=== PATIENT | male | born 1930 | race Hispanic/Latino ===

== ENCOUNTER 2020-10-23 01:03 | Observation (INO) | payer MEDICARE ==
[~2020-10-23] VITALS: Ht 172.7 cm; Wt 104.3 kg
[2020-10-23] MEDS ORDERED: DEXTROSE 50% SYRINGE 50 ML IV ONE (01:29)
[2020-10-23] MEDS ORDERED: DEXTROSE 50% SYRINGE 50 ML IV STA (01:30)
[2020-10-23] MEDS ORDERED: DEXTROSE 5%/0.45% SOD CHL 1,000 ML IV STA (01:32)
[2020-10-23 01:38] LABS: BASOPHILS % 0.3 % (0.0-1.0); EOSINOPHILS # (AUTO) 0.1 (0.0-0.4); EOSINOPHILS % 1.4 % (0.0-6.0); HEMATOCRIT 39.7 % (38.2-49.6); HEMOGLOBIN 11.7 g/dL (14.0-18.0); LYMPHOCYTES % 14.8 % (18.0-39.1); MEAN CORPUSCULAR HEMOGLOBIN 29.8 pg (28-32); MEAN CORPUSCULAR HGB CONC 29.5 g/dL (31-35); MONOCYTES # (AUTO) 0.4 (0.2-0.8); MONOCYTES % 6.2 % (4.4-11.3); NEUTROPHILS # (AUTO) 5.1 (2.1-6.9); NEUTROPHILS % 76.4 % (38.7-80.0); PLATELET COUNT 176 x10e3/uL (140-360); RED BLOOD COUNT 3.93 x10e6/uL (4.3-5.7); RED CELL DISTRIBUTION WIDTH 16.2 % (11.7-14.4)
[2020-10-23 02:09] LABS: CREATINE KINASE MB < 1.00 ng/mL (0-4.3)
[2020-10-23 02:20] LABS: ALANINE AMINOTRANSFERASE 29 IU/L (0-55); ANION GAP 15.7 mmol/L (8-16); BLOOD UREA NITROGEN 18 mg/dL (7-26); BUN/CREATININE RATIO 18 (6-25); CALCIUM 8.3 mg/dL (8.4-10.2); CARBON DIOXIDE 20 mmol/L (22-29); CHLORIDE 111 mmol/L (98-107); CREATININE, SERUM 1.02 mg/dL (0.72-1.25); EST GLOMERULAR FILTRATION RATE > 60 ML/MIN (60-); GLUCOSE 175 mg/dL (74-118); POTASSIUM 4.7 mmol/L (3.5-5.1); SODIUM 142 mmol/L (136-145)
[2020-10-23 02:21] LABS: ALBUMIN 3.4 g/dL (3.5-5.0); ALBUMIN/GLOBULIN RATIO 1.1 (0.8-2.0); ALKALINE PHOSPHATASE 46 IU/L (40-150); CREATINE KINASE 83 IU/L (30-200)
[2020-10-23] MEDS ORDERED: ASPIRIN 81 MG CHEW TAB PO ONE (03:15)
[2020-10-23] MEDS ORDERED: DEXTROSE 5%/0.45% SOD CHL 1,000 ML IV ONE ×2 (10:15→20:30)
[2020-10-23] MEDS ORDERED: LACTATED RINGER'S 1,000 ML ONE (10:15)
[2020-10-23 10:53] LABS: CREATINE KINASE MB 1.2 ng/mL (0-5.0)
[2020-10-23 17:34] VITALS: BP 155/73
[2020-10-23 17:35] VITALS: BP 155/73
[2020-10-23 17:46] VITALS: BP 155/73
[2020-10-23] MEDS ORDERED: TRICOR145 MG PO (18:19)
[2020-10-23] MEDS ORDERED: ASPIRIN81 MG PO (18:19)
[2020-10-23] MEDS ORDERED: LISINOPRIL5 MG PO (18:19)
[2020-10-23] MEDS ORDERED: METFORMIN HCL500 MG PO (18:19)
[2020-10-23] MEDS ORDERED: ARICEPT5 MG PO (18:19)
[2020-10-23] MEDS ORDERED: NAMENDA10 MG PO (18:19)
[2020-10-23] MEDS ORDERED: GLIMEPIRIDE4 MG PO (18:19)
[2020-10-23] MEDS ORDERED: JANUVIA100 MG PO (18:19)
[2020-10-23] MEDS ORDERED: SIMVASTATIN40 MG PO (18:47)
[2020-10-23 19:52] LABS: CREATINE KINASE MB 1.1 ng/mL (0-5.0)
[2020-10-23 20:00] VITALS: BP 150/58
[2020-10-23] MEDS: LISINOPRIL 2.5 MG TAB PO SCH (20:54)
[2020-10-23 21:00] VITALS: BP 150/68
[2020-10-24 04:00] VITALS: BP 143/69
[2020-10-24 06:41] LABS: BASOPHILS % 0.8 % (0.0-1.0); EOSINOPHILS # (AUTO) 0.3 (0.0-0.4); EOSINOPHILS % 5.3 % (0.0-6.0); HEMATOCRIT 35.2 % (38.2-49.6); HEMOGLOBIN 11.4 g/dL (14.0-18.0); LYMPHOCYTES # (AUTO) 1.3 (1.0-3.2); LYMPHOCYTES % 25.7 % (18.0-39.1); MEAN CORPUSCULAR HEMOGLOBIN 29.2 pg (28-32); MEAN CORPUSCULAR HGB CONC 32.4 g/dL (31-35); MEAN CORPUSCULAR VOLUME 90.3 fL (81-99); MONOCYTES # (AUTO) 0.4 (0.2-0.8); MONOCYTES % 8.1 % (4.4-11.3); NEUTROPHILS % 59.1 % (38.7-80.0); PLATELET COUNT 163 x10e3/uL (140-360); RED CELL DISTRIBUTION WIDTH 15.4 % (11.7-14.4)
[2020-10-24 07:17] LABS: ALANINE AMINOTRANSFERASE 32 IU/L (0-55); ALKALINE PHOSPHATASE 49 IU/L (40-150); ANION GAP 13.6 mmol/L (8-16); BLOOD UREA NITROGEN 12 mg/dL (7-26); BUN/CREATININE RATIO 14 (6-25); CALCIUM 7.8 mg/dL (8.4-10.2); CARBON DIOXIDE 22 mmol/L (22-29); CHLORIDE 109 mmol/L (98-107); CREATININE, SERUM 0.87 mg/dL (0.72-1.25); EST GLOMERULAR FILTRATION RATE > 60 ML/MIN (60-); GLUCOSE 188 mg/dL (74-118); POTASSIUM 3.6 mmol/L (3.5-5.1); SODIUM 141 mmol/L (136-145)
[2020-10-24 07:59] VITALS: BP 164/74
[2020-10-24] MEDS: LISINOPRIL 2.5 MG TAB PO SCH (08:49)
[2020-10-24 10:03] VITALS: BP 164/74
[2020-10-24 11:49] VITALS: BP 150/74
[2020-10-24 16:34] VITALS: BP 153/66
[2020-10-24] MEDS ORDERED: LISINOPRIL 20 MG TAB PO SCH (17:00)
[2020-10-24] MEDS ORDERED: LISINOPRIL 2.5 MG TAB PO SCH (17:00)
[2020-10-24] MEDS ORDERED: LISINOPRIL10 MG PO (18:02)
== END 2020-10-24 18:46 | disposition home or self-care (01) ==
LOC: ER 01:13 → ERHOLD 03:19 → MED/SURG2 17:09
PROVIDERS: ADMIT Internal Medicine; ATTEND Internal Medicine
DX: T38.3X1A Poisoning by insulin and oral hypoglycemic [antidiabetic] drugs, accidental (unintentional), initial encounter (principal); E11.649 Type 2 diabetes mellitus with hypoglycemia without coma; G93.41 Metabolic encephalopathy; E78.5 Hyperlipidemia, unspecified; I11.0 Hypertensive heart disease with heart failure; I50.30 Unspecified diastolic (congestive) heart failure; Z85.038 Personal history of other malignant neoplasm of large intestine; Y92.019 Unspecified place in single-family (private) house as the place of occurrence of the external cause; Z79.84 Long term (current) use of oral hypoglycemic drugs; Z90.49 Acquired absence of other specified parts of digestive tract; I49.3 Ventricular premature depolarization; Z20.822 Contact with and (suspected) exposure to COVID-19
CPT/HCPCS: 36415 ×2; 70450; 80053 ×2; 82550; 82553; 82948 ×2; 83036; 83880; 84484; 85025 ×2; 93005; 93306; 99284; G0378 ×2; J7121; J7799; U0002

== ENCOUNTER 2021-09-15 18:25 | Emergency (ER) | payer MEDICARE ==
[~2021-09-15] VITALS: Ht 175.3 cm; Wt 83.9 kg
[~2021-09-15 18:25] MED LIST: ARICEPT5 MG PO; ASPIRIN81 MG PO; GLIMEPIRIDE4 MG PO; JANUVIA100 MG PO; LISINOPRIL10 MG PO; LISINOPRIL5 MG PO; METFORMIN HCL500 MG PO; NAMENDA10 MG PO; SIMVASTATIN40 MG PO; TRICOR145 MG PO
[2021-09-15] MEDS ORDERED: ACETAMINOPHEN 325 MG TAB PO STA (18:40)
[2021-09-15] MEDS ORDERED: CEFTRIAXONE 1 GM in SODIUM CHLORIDE 0.9% 50ML 50 ML IV ONE (18:45)
[2021-09-15 18:58] LABS: BASOPHILS % 0.2 % (0.0-1.0); HEMATOCRIT 36.3 % (34.2-44.1); LYMPHOCYTES # (AUTO) 1.2 (1.0-3.2); LYMPHOCYTES % 9.2 % (18.0-39.1); MEAN CORPUSCULAR HEMOGLOBIN 29.8 pg (28-32); MEAN CORPUSCULAR HGB CONC 33.1 g/dL (31-35); MEAN CORPUSCULAR VOLUME 90.1 fL (81-99); MONOCYTES % 8.1 % (4.4-11.3); NEUTROPHILS # (AUTO) 10.3 (2.1-6.9); NEUTROPHILS % 81.3 % (38.7-80.0); PLATELET COUNT 189 x10e3/uL (140-360); RED BLOOD COUNT 4.03 x10e6/uL (3.6-5.1); RED CELL DISTRIBUTION WIDTH 13.9 % (11.7-14.4)
[2021-09-15 19:11] LABS: INR 1.11; PROTHROMBIN TIME 15.2 seconds (11.9-14.5)
[2021-09-15 19:12] LABS: PARTIAL THROMBOPLASTIN TIME 36.9 seconds (23.8-35.5)
[2021-09-15 19:22] LABS: ALBUMIN 3.2 g/dL (3.5-5.0); ALBUMIN/GLOBULIN RATIO 0.9 (0.8-2.0); ANION GAP 14.4 mmol/L (8-16); CALCIUM 8.5 mg/dL (8.4-10.2); CREATININE, SERUM 1.2 mg/dL (0.72-1.25); POTASSIUM 3.4 mmol/L (3.5-5.1)
[2021-09-15 19:28] LABS: CREATINE KINASE MB 0.8 ng/mL (0-5.0)
[2021-09-15 23:54] LABS: CLARITY,URINE CLOUDY (CLEAR); COLOR,URINE AMBER (YELLOW); LEUKOCYTE ESTERASE ,URINE SMALL (NEGATIVE); NITRITE,URINE POSITIVE (NEGATIVE)
[2021-09-15 23:55] LABS: KETONES,URINE NEGATIVE (NEGATIVE); PROTEIN,URINE DIPSTICK 2+ (NEGATIVE); URINE UROBILINOGEN 1 mg/dL (0.2 - 1)
[2021-09-16 00:01] LABS: AMORPHOUS SEDIMENT,URINE FEW (FEW); BACTERIA,URINE FEW /HPF; EPITHELIAL CELLS,URINE FEW /LPF; RBC,URINE 21-50 /HPF (0-5)
[2021-09-16] MEDS ORDERED: CEPHALEXIN500 MG PO (00:16)
[2021-09-16 02:05] VITALS: BP 132/65
== END 2021-09-16 01:00 | disposition home or self-care (01) ==
LOC: EDSEX 18:25 → ER 18:41
DX: N39.0 Urinary tract infection, site not specified (principal); I10 Essential (primary) hypertension; E11.9 Type 2 diabetes mellitus without complications; E78.5 Hyperlipidemia, unspecified; F03.90 Unspecified dementia, unspecified severity, without behavioral disturbance, psychotic disturbance, mood disturbance, and anxiety; Z79.82 Long term (current) use of aspirin; Z79.899 Other long term (current) drug therapy; Z85.038 Personal history of other malignant neoplasm of large intestine
CPT/HCPCS: 36415; 71045; 80053; 81001; 82550; 82553; 83605; 83880; 84484; 85025; 85610; 85730; 87040; 87086; 99284; J0696; U0002